=== PATIENT | male | born 1980 ===

== ENCOUNTER 2025-07-15 06:26 | Day surgery (SDC) | payer BC, SELFPAY | END 2025-07-15 15:04 | disposition home or self-care (01) | LOC: GI 06:26 | PROVIDERS: ATTENDING PHYSICIAN Internal Medicine Gastroenterology | DX: R19.4 Change in bowel habit (principal); K52.9 Noninfective gastroenteritis and colitis, unspecified | CPT/HCPCS: 45380; 88305 ==